=== PATIENT | male | born 1975 | race Two or more races ===

== ENCOUNTER 2019-06-08 09:04 | Emergency (ER) | payer OTHER, MEDICAID ==
[~2019-06-08] VITALS: Ht 188 cm; Wt 106.0 kg
[~2019-06-08 09:04] MED LIST: ALBU8.5H8 INH; BENZ1LOZ61 PO; CYCL-1 PO; DIAZ5TAB PO; GUAI120015 PO; METH500T PO; PSEU120T55 PO
[2019-06-08 09:11] VITALS: BP 157/98
[2019-06-08] MEDS ORDERED: ketorolac tromethamine 15mg/ml inj. IM ONE (10:10)
[2019-06-08] MEDS ORDERED: METH-360 PO (10:59)
[2019-06-08] MEDS ORDERED: NAPR-56 PO (10:59)
== END 2019-06-08 11:09 | disposition home or self-care (01) ==
LOC: ER 09:04
DX: S39.012A Strain of muscle, fascia and tendon of lower back, initial encounter (principal); S29.012A Strain of muscle and tendon of back wall of thorax, initial encounter; I10 Essential (primary) hypertension; G89.29 Other chronic pain; F12.90 Cannabis use, unspecified, uncomplicated; Z90.49 Acquired absence of other specified parts of digestive tract; Z79.899 Other long term (current) drug therapy; V49.88XA Car occupant (driver) (passenger) injured in other specified transport accidents, initial encounter; Y93.89 Activity, other specified; Y92.413 State road as the place of occurrence of the external cause; Y99.9 Unspecified external cause status
CPT/HCPCS: 96372; 99283; J1885

== ENCOUNTER 2020-02-19 22:21 | Emergency (ER) | payer MEDICAID ==
[~2020-02-19] VITALS: Ht 188 cm; Wt 103.5 kg
[~2020-02-19 22:21] MED LIST changes: +METH-360 PO
[2020-02-19 22:22] VITALS: BP 142/97
[2020-02-19] MEDS ORDERED: ondansetron 4mg rapidly disintigrating tab PO ONE (22:50)
[2020-02-19] MEDS ORDERED: HYDROcodone/acetaminophen 5mg/325mg tablet PO ONE (22:50)
[2020-02-19] MEDS ORDERED: IBUP-1984 PO (22:50)
[2020-02-19] MEDS ORDERED: PENI500T2 PO (22:50)
== END 2020-02-19 23:09 | disposition home or self-care (01) ==
LOC: ER 22:21
DX: K08.89 Other specified disorders of teeth and supporting structures (principal); I10 Essential (primary) hypertension; F12.90 Cannabis use, unspecified, uncomplicated; G89.29 Other chronic pain; Z90.49 Acquired absence of other specified parts of digestive tract; Z79.899 Other long term (current) drug therapy
CPT/HCPCS: 99283

== ENCOUNTER 2020-06-04 10:17 | Emergency (ER) | payer MEDICAID ==
[~2020-06-04] VITALS: Ht 188 cm; Wt 104.5 kg
[2020-06-04 10:25] VITALS: BP 155/104
[2020-06-04] MEDS ORDERED: HYDR-3965 PO (11:12)
[2020-06-04] MEDS ORDERED: METH4TAB81 PO (11:12)
== END 2020-06-04 11:20 | disposition home or self-care (01) ==
LOC: ER 10:18
DX: M46.1 Sacroiliitis, not elsewhere classified (principal); I10 Essential (primary) hypertension; G89.29 Other chronic pain; F12.90 Cannabis use, unspecified, uncomplicated; Z90.89 Acquired absence of other organs; Z79.899 Other long term (current) drug therapy
CPT/HCPCS: 99283